=== PATIENT | female | born 1985 | race Caucasian/White ===

== ENCOUNTER 2018-07-30 16:08 | Emergency (ER) | payer BC, MEDICAID ==
[~2018-07-30] VITALS: Ht 162.6 cm; Wt 63.5 kg
[2018-07-30 16:08] VITALS: Ht 162.6 cm; Wt 63.5 kg
[2018-07-30 17:55] VITALS: BP 111/75
== END 2018-07-30 17:55 | disposition home or self-care (01) ==
LOC: ED 16:08
DX: T40.4X5A Adverse effect of other synthetic narcotics, initial encounter (principal); M79.605 Pain in left leg; M79.604 Pain in right leg; Y92.89 Other specified places as the place of occurrence of the external cause
CPT/HCPCS: 82962